=== PATIENT | male | born 1945 | race Two or more races ===

== ENCOUNTER 2019-06-14 06:43 | Day surgery (SDC) | payer OTHER | END 2019-06-14 11:00 | disposition home or self-care (01) | LOC: AMB-ENDOS 06:43 | DX: D12.8 Benign neoplasm of rectum (principal); K57.30 Diverticulosis of large intestine without perforation or abscess without bleeding ==

== ENCOUNTER 2020-07-31 06:35 | Day surgery (SDC) | payer OTHER | END 2020-07-31 11:00 | disposition home or self-care (01) | LOC: AMB-ENDOS 06:35 | PROVIDERS: ATTEND Surgery | DX: D12.3 Benign neoplasm of transverse colon (principal); D12.4 Benign neoplasm of descending colon; D12.5 Benign neoplasm of sigmoid colon; Z20.828 Contact with and (suspected) exposure to other viral communicable diseases ==

== ENCOUNTER 2023-03-05 05:30 | Day surgery (SDC) | payer OTHER ==
[~2023-03-05] VITALS: Ht 180.3 cm; Wt 87.1 kg
[~2023-03-05 05:30] MED LIST: ATORVASTATIN CA10 MG PO; BRIMONIDINE TART5 ML OP; CHILDREN'S ASPI81 MG PO; ENALAPRIL MALE2.5 MG PO; HYDRODIURIL12.5 MG PO; METFORMIN HCL500 M3 PO; RESTORIL30 M1 PO
[2023-03-05] MEDS ORDERED: RECTICARE30 GM TOP (08:06)
[2023-03-05] MEDS ORDERED: PERCOCET 5-3251 EACH PO (08:06)
== END 2023-03-05 11:45 | disposition home or self-care (01) ==
LOC: CIR.AMB 05:30
PROVIDERS: ATTEND Surgery
DX: K62.0 Anal polyp (principal); K62.1 Rectal polyp; K64.4 Residual hemorrhoidal skin tags; R19.4 Change in bowel habit; D12.7 Benign neoplasm of rectosigmoid junction; Z20.822 Contact with and (suspected) exposure to COVID-19; I10 Essential (primary) hypertension